=== PATIENT | female | born 1950 | race African-American/Black ===

== ENCOUNTER → 2017-12-25 | Outpatient (CLI) | payer OTHER | LOC: RAD 01:30 | DX: Z12.31 Encounter for screening mammogram for malignant neoplasm of breast (principal) ==

== ENCOUNTER → 2019-01-22 | Outpatient (CLI) | payer OTHER | LOC: ULTRA 10:01 | DX: N83.202 Unspecified ovarian cyst, left side (principal) ==

== ENCOUNTER → 2019-02-12 | Outpatient (CLI) | payer OTHER | LOC: RAD 11:09 | DX: Z12.31 Encounter for screening mammogram for malignant neoplasm of breast (principal) ==

== ENCOUNTER → 2019-02-13 | Outpatient (CLI) | payer OTHER | LOC: ULTRA 13:42 | DX: N63.20 Unspecified lump in the left breast, unspecified quadrant (principal) ==

== ENCOUNTER 2019-04-04 07:05 | Day surgery (SDC) | payer OTHER ==
[~2019-04-04] VITALS: Ht 167.6 cm; Wt 102.5 kg
[~2019-04-04 07:05] MED LIST: HAIR, SKIN & N1 EAC3 PO; HYDROCHLOROTHIA25 M2 PO; IBUPROFEN 800800 M1 PO
[2019-04-04 08:10] VITALS: BP 135/57
[2019-04-04 08:17] LABS: CALCIUM 9.4 mg/dL (8.5-10.1); POTASSIUM 3.3 mmol/L (3.5-5.1)
[2019-04-04 10:35] VITALS: BP 135/57
--- NOTE | 2019-04-04 14:10 | O ---
[facility] [place] [address] OPERATIVE REPORT Name: ROC TERRELL Room #: 150-3 [facility]..#: [id number] Admission: 04/04/19 Attend Phys: Ryan Ferrer MD Discharge: Date of : 54 Report #: [id number] THIS REPORT FOR: //name// CC: Ryan Clark DATE OF SERVICE: 04/04/2019 PREOPERATIVE DIAGNOSIS: Postmenopausal bleeding. POSTOPERATIVE DIAGNOSIS: Postmenopausal bleeding. PROCEDURE: Dilatation and curettage/hysteroscopy. SURGEON: Ryan Ferrer MD NOTCHING MACHINE OPERATOR: None. ANESTHESIA: General. ESTIMATED BLOOD LOSS: 5 mL. SPECIMENS: Endometrial curettings DRAINS: None. COMPLICATIONS: None. FINDINGS: Pelvic examination under anesthesia revealed an anteflexed, normal-sized uterus with left adnexal fullness. Hysteroscopically, there were some intrauterine adhesions in the midline, but otherwise no lesions. Endometrial curettings were scant. The internal cavity was that of an arcuate uterus, perhaps. DESCRIPTION OF PROCEDURE: The patient was seen in the preoperative holding area where consent was obtained for surgery and postoperative followup instructions were reviewed. The patient was then taken to the operating room and administered general anesthesia. She was then prepped and draped in a sterile fashion in the dorsal lithotomy position. Pelvic examination under anesthesia was carried out. Speculum was then placed in the vagina. The cervix was grasped using a single-tooth tenaculum along its anterior lip. There was a very stenotic cervix. Shima urethral dilators were used to progressively dilate the endocervical canal enough to admit the 3.5 mm hysteroscope with normal saline under direct hysteroscopic vision. The hysteroscope was inserted and findings were as dictated above. The cavity did seem small and therefore, the hysteroscope was removed and the uterine sound was used to measure the depth at [facility] [address] [place] [address] OPERATIVE REPORT Name: ROC TERRELL Room #: 150-3 [facility].#: [id number] Admission: 04/04/19 Attend Phys: Ryan Ferrer MD Discharge: Date of : 54 Report #: [id number] 5 cm, uterine and cervix combined. Both tubal ostia were visualized. No submucosal fibroids or endometrial polyps were seen. The hysteroscope was then again removed. Hanks dilators were used to progressively dilate the endocervical canal. A smooth sharp curette was then used to obtain endometrial curettings from the entirety of the endometrial cavity. These curettings were very scant and were sent for pathology. The hysteroscope was then reinserted under direct hysteroscopic vision with normal saline distending medium prior to withdrawing the hysteroscope. The tenaculum was removed from the cervix. Hemostasis was achieved using sponge on a stick pressure. All instrument and pack counts were correct after removing it. The patient was then taken out of general anesthesia and to the recovery room with the intravenous infusing well. She was to be discharged home on ibuprofen for pain and to be seen in the office in 7 days. She was to call Dr. Ferrer should she have any fever, increasing pain, or menses like bleeding. <ELECTRONICALLY SIGNED> By: Ryan Ferrer MD 04/04/19 1410 1041 [id number] Ryan Ferrer MD /nt
--- NOTE | 2019-04-11 18:06 | PATH ---
[facility] [address] [place] [address] PATHOLOGY RPT PROCEDURE Name: ROC ARAMBULA Breanne Room #: DEP [facility]..#: [id number] Admission: 04/04/19 Date of : 54 Discharge: 04/04/19 Report #: [id number] Path Case #: [id number] [facility] Accession Number: [id number] . 01 Material submitted: . endocervix - ENDOCERVICAL TISSUE . 01 Clinical history: . Cervical stenosis. . 02 Diagnosis: Cervix, endocervical tissue, curettings: - Fragments of ectocervical epithelium showing reactive changes including atypical squamous metaplasia. (Please see comment) - Fragments of benign endocervical epithelium with no evidence of dysplasia. (IUV:amna; 04/05/2019) QMS 04/05/2019 1348 Local . 02 Comment: The changes identified within the ectocervical epithelial fragments likely represent atrophy. Definitive koilocytic changes, or dysplastic changes are not identified. Please correlate clinically. (IUV:amna; 04/05/2019) . 02 Addendum: . This addendum is issued subsequent to a conversation with Dr. Ryan Ferrer who states that this specimen should actually represent endometrial curettings rather than endocervical. While the specimen is predominantly (90%) comprised of benign ectocervical as well endocervical epithelial elements, scant to rare inactive endometrial epithelium is present within the background (representing less than 2% of the sample) showing no evidence of hyperplasia, atypia or malignancy. The originally rendered diagnoses are further refined as follows: . Uterus, endocervical/endometrial tissue, curettings: - Scant to rare (less than 2% of specimen)fragments of inactive/atrophic endometrium without hyperplasia or malignancy. - Fragments of ectocervical epithelium showing reactive changes including atypical squamous metaplasia. - Fragments of benign endocervical epithelium with no evidence of dysplasia. (IUV/db; 04/11/2019) . Professional services performed by [facility] at [facility], [address] [place] [address] , [place] [address]. Technical services performed by [facility] at [address] [place] [address], [address], [place] [address]. [place] [address] PATHOLOGY RPT PROCEDURE Name: ROC ARAMBULA Breanne [id number] Admission: 04/04/19 Date of : 54 Discharge: 04/04/19 Report #: [id number] Path Case #: [id number] LBQ/04/11/2019 Addendum Electronically Signed by Maral Bishop MD, Pathologist . 02 Electronically signed: . Maral Bishop MD, Pathologist NPI- [id number] . 01 Gross description: . Received in formalin labeled "Arambula, Roc, endocervical tissue" is a 1.8 x 0.6 x 0.1 cm aggregate of red-brown soft tissue fragments. The specimen is submitted in cassette A1. ([facility]; 04/04/2019) SYC/SY 04/04/2019 1703 Local . 02 Pathologist provided ICD-10: N87.9, N85.8 . 02 CPT . 139185 Specimen Comment: A courtesy copy of this report has been sent to Specimen Comment: [phone], . Specimen Comment: Report sent to / DR DRIVER Performed at: [address] [facility], [place] [id number] MD Abimael Muniz MD Phone: [phone] Performed at: [address] [id number] MD Maral Bishop MD Phone: [phone]
== END 2019-04-04 11:15 | disposition home or self-care (01) ==
LOC: OR 07:05 → TBA 10:08 → OR 10:11
PROVIDERS: Obstetrics & Gynecology
DX: N95.0 Postmenopausal bleeding (principal); N87.9 Dysplasia of cervix uteri, unspecified; Z98.890 Other specified postprocedural states; Z88.8 Allergy status to other drugs, medicaments and biological substances; Z79.899 Other long term (current) drug therapy
CPT/HCPCS: 50010; 50101; 54172; 54173; 62110; 62900; 70005

== ENCOUNTER → 2019-08-06 | Outpatient (CLI) | payer OTHER | LOC: RAD 12:24 | DX: M43.16 Spondylolisthesis, lumbar region (principal); M48.061 Spinal stenosis, lumbar region without neurogenic claudication; M25.78 Osteophyte, vertebrae; M12.88 Other specific arthropathies, not elsewhere classified, other specified site ==

== ENCOUNTER → 2019-08-13 | Outpatient (CLI) | payer OTHER | LOC: MRI 07:59 | DX: M47.26 Other spondylosis with radiculopathy, lumbar region (principal); M43.16 Spondylolisthesis, lumbar region; M51.16 Intervertebral disc disorders with radiculopathy, lumbar region; M12.88 Other specific arthropathies, not elsewhere classified, other specified site; M48.061 Spinal stenosis, lumbar region without neurogenic claudication; M25.78 Osteophyte, vertebrae ==

== ENCOUNTER → 2019-09-18 | Outpatient (CLI) | payer OTHER ==
[~2019-09-18] VITALS: Ht 165.1 cm; Wt 88.0 kg
[~2019-09-18] MED LIST changes: +COLLAGEN PO
--- NOTE | ~2019-09-18 | HPC ---
[facility] [place] [address] PAIN MANAGEMENT CONSULTATION Name: ROC TERRELL Room #: REG STEFANIA FrederickMisaelJoeyMisael#: [id number] Admission: 09/18/19 Attend Phys: Eliezer Barrett DO Discharge: Date of : 54 Report #: [id number] THIS REPORT FOR: cc: Corona Clark,Eliezer Chang DO ~ CC: Eliezer Abdul DATE OF SERVICE: 09/18/2019 REFERRING PHYSICIAN: Dr. Clark. CHIEF COMPLAINT: Low back pain, right lower extremity pain with paresthesias. HISTORY OF PRESENT ILLNESS: As you know, the patient is a very pleasant 69-year-old female who reports a 25-year history of chronic low back pain with progressively worsening right lower extremity pain. She is now experiencing numbness and tingling radiating from the low back all the way down the right leg with changes in her gait. She sought evaluation through her primary care physician who trialled conservative treatment options. Unfortunately, these options did not provide long-term benefit. She was then referred for MRI of the lumbar spine, the findings of that MRI showed severe central canal stenosis at L4-L5 and severe neural foraminal stenosis bilaterally at the L5-S1 level. The patient was then subsequently referred to our clinic to discuss treatment options. The patient indicates today her pain is continuous and constant with brief exacerbations of symptoms. She describes the pain as aching, throbbing, numbness and tingling. She places the current pain score at 6/10, daily average at 6-7/10, worst pain has been is 8-10/10. She states that prolonged standing, prolonged sitting and certain activities exacerbate symptoms. She states pain is improved with rest, medications and chiropractic manipulation. She has been referred to our service to discuss treatment options for lumbar radicular symptoms secondary to severe central canal stenosis at the L4-L5 level and neural foraminal stenosis at the L5-S1 level. PAST MEDICAL HISTORY: None. PAST SURGICAL HISTORY: 1. Hysterectomy. 2. Correction of hammertoe, bilateral feet. SOCIAL HISTORY: The patient denies tobacco, alcohol, IV or illicit drug use. 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 [place] [address] PAIN MANAGEMENT CONSULTATION Name: TERRELLROC REYES Room #: REG CL Dimple#: [id number] Admission: 09/18/19 Attend Phys: Eliezer Barrett DO Discharge: Date of : 54 Report #: [id number] workmen's compensation nor is she trying to obtain disability benefits. She is not in litigation in regards to pain. She is unaccompanied at today's visit. REVIEW OF SYSTEMS: Positive for wearing corrective eyewear, weight gain, decrease in appetite, fever and night sweats, low back pain, right lower extremity pain with paresthesias. All other review of systems negative per 12-point review of systems other than those listed in history of present illness. Pain impact score of 28/70 indicating moderate interference of daily activities secondary to pain. ALLERGIES: TRAMADOL. CURRENT MEDICATIONS: Ibuprofen 800 mg b.i.d., hydrochlorothiazide 25 mg once a day, collagen supplement 600 mg 3 times a day. IMAGING: MRI of the lumbar spine obtained 08/13/2019 shows L1-L2 bilateral facet arthropathy and ligamentum flavum hypertrophy. No significant central canal stenosis or neural foraminal stenosis. L2-L3 shows broad-based posterior disk bulge, bilateral facet and ligamentum flavum hypertrophy resulting in moderate central canal stenosis AP diameter of the canal 8.4 mm, mild neural foraminal narrowing bilaterally. L3-L4, broad-based posterior disk bulge, bilateral facet arthropathy and ligamentum flavum hypertrophy resulting in moderate central canal stenosis with AP diameter of the canal measuring 8.5 mm, mild bilateral neural foraminal narrowing. L5-S1, grade 1 anterolisthesis, bilateral facet hypertrophy and severe ligamentum flavum hypertrophy resulting in severe central canal stenosis with diameter of the canal 5.4 mm with moderate bilateral neural foraminal narrowing. L5-S1 shows posterior disk osteophyte complex, bilateral facet hypertrophy. No significant central canal stenosis, but severe neural foraminal narrowing. PQRS: The patient has known arthritic changes of the lumbar spine. No rheumatoid arthritis. She is placing pain intensity today at 6/10. She is not a fall risk, has not had a fall in last 3 months. She is not on blood thinners nor she is treated for hypertension. She utilizes hydrochlorothiazide for water retention. She is not on chronic opioids. She is at a low risk for opioid addiction. Pain impact score of 28/70, moderate interference of daily activities secondary to pain. PHYSICAL EXAMINATION: VITAL SIGNS: Blood pressure 139/60, pulse 71, respiratory rate 14 and unlabored. The patient is 100% on room air. Height 5 feet 5 inches tall, weight 194 pounds, BMI calculated 32.3. GENERAL: A well-developed, well-nourished, well-hydrated 69-year-old female appearing stated age, pain is rated today 6/10. [address] [address] PAIN MANAGEMENT CONSULTATION Name: ROC TERRELL Room #: REG [facility]#: [id number] Admission: 09/18/19 Attend Phys: Eliezer Barrett DO Discharge: Date of : 54 Report #: [id number] HEENT: Normocephalic, atraumatic. Pupils are equal, round, reactive to light. Extraocular muscles are intact. Sclerae nonicteric without injection. NEUROLOGIC: Cranial nerves 2-12 grossly intact. Speech fluent. The patient deemed a good historian. LUNGS: Clear. No wheeze, rhonchi, no rales. CARDIOVASCULAR: Regular. No appreciable gallop, no rub. ABDOMEN: Soft, mildly obese, normoactive bowel sounds. EXTREMITIES: Show no clubbing, no cyanosis, and no edema. MUSCULOSKELETAL: Lower extremity strength is symmetrical 5/5, though there is giveaway strength noted with hip flexion, knee extension on the right due to pain generation. Seated straight leg raising positive right. Supine straight leg raising positive right. Guero's test is negative. Modified Gaenslen's positive for some axial low back pain. Ankle clonus negative. Babinski is negative. She does appear to be intact to light touch from L1 through S2 dermatomes. Gait is antalgic favoring right lower extremity over left. ASSESSMENT: 1. Symptomatic lumbar radiculopathy. 2. Severe central canal stenosis of the lumbar spine. 3. Severe neural foraminal stenosis of lumbar spine. 4. Displacement of lumbar intervertebral disk with radiculopathy. 5. Lumbosacral spondylosis with radiculopathy. 6. Facet arthropathy of the lumbar spine. 7. Chronic intractable pain. PLAN: 1. The patient has been referred to our service to discuss treatment options for suspected lumbar radiculopathy. We have reviewed with the patient her recent MRI where we spent over 15 minutes of time reviewing the findings of that MRI and then correlating to her current symptoms. We utilized digital imaging as well as modeling to allow visualization of the findings. We then discussed the treatment options available for lumbar radiculopathy. The following was discussed with the patient today. We discussed physical therapy, stretching exercises and core strengthening as a treatment option. We discussed medication management utilizing neuropathic pain medications in the form of either nortriptyline, amitriptyline, Cymbalta, Lyrica or gabapentin. We also discussed epidural injection under fluoroscopic guidance to address lumbar radicular symptoms and the inflammatory process. We also discussed spinal cord stimulator therapy and ultimately surgical decompression at the L4-L5 level and foraminotomy at the L5-S1 level to address the findings therein. After reviewing the risks and benefits of all the proposed treatment options, the patient chose to undergo a lumbar epidural injection under fluoroscopic guidance. 2. The patient was advised due to third republican payer restrictions, authorization will have to be obtained before the patient could undergo the epidural [address] [address] PAIN MANAGEMENT CONSULTATION Name: ROC TERRELL Room #: REG CLRonit Musa#: [id number] Admission: 09/18/19 Attend Phys: Eliezer Barrett DO Discharge: Date of : 54 Report #: [id number] injection. Authorization could take anywhere from 4-7 working days. We will tentatively place to schedule the patient on the schedule for next Monday to undergo a lumbar epidural injection. If we are able to obtain the authorization earlier, we will have the patient return to undergo the procedure more rapidly. We will begin this process of authorization immediately. 2. No medication changes made at today's visit. We did discuss the medications today, but she wishes to delay this treatment option in favor of an epidural injection. 3. We will see the patient back in followup visit once we have achieved authorization for the patient to undergo the first in a series of lumbar epidural injections. We are hopeful we can provide this very rapidly. 4. We wish to thank Dr. Clark for the referral of the patient to our clinic. We will keep you apprised of her response to treatment as we address lumbar radiculopathy secondary to severe central canal stenosis at the L4-L5 level and the bilateral neural foraminal stenosis at the L5-S1 level. Again, we wish to thank you for the opportunity to see this patient in consultation. By: 1625 [id number] Eliezer Barrett DO /nt
[2019-09-18 15:00] VITALS: BP 139/60
--- NOTE | 2019-09-18 15:10 | NUR ---
Pain Clinic Assessment: 1. History of Osteoarthritis: SPINE History of Rheumatoid Arthritis: Not Applicable 2. Height: 5 ft. 5 in. 165.1 cm. Weight: 194.0 lb. oz. 87.998 kg. Patient's BMI: 32.3 3. Vital Signs: BP: 139/60 Pulse: 71 Resp: 14 Temp: 02 Sat: 100 ECG Mon: 4. Pain Intensity: 6 5. Fall Risk: Dizziness: N Needs help standing or walking: N Fallen in the last 3 months: N Fall risk comments: 6. Patient on Blood Thinner: None 7. History of Hypertension: N 8. Opioid Therapy greater than 6 weeks: N Opiate Contract Signed: 9. Risk Assessment Tool Provided: 10. Functional Assessment Tool: 11. Recreational Drug Use: Never Drug Type: Tobacco Use: Never Smoker Tobacco Type: Amount or Packs/day: How Many Years: Alcohol Use: Yes Frequency: Weekly Quant: 3
== END | disposition home or self-care (01) ==
LOC: PAIN 07:04
DX: M51.16 Intervertebral disc disorders with radiculopathy, lumbar region (principal); M47.27 Other spondylosis with radiculopathy, lumbosacral region; M48.061 Spinal stenosis, lumbar region without neurogenic claudication; M47.26 Other spondylosis with radiculopathy, lumbar region; G89.29 Other chronic pain; I10 Essential (primary) hypertension; Z98.890 Other specified postprocedural states; Z79.899 Other long term (current) drug therapy; Z90.710 Acquired absence of both cervix and uterus

== ENCOUNTER → 2019-10-08 | Outpatient (CLI) | payer OTHER ==
[~2019-10-08] VITALS: Ht 165.1 cm; Wt 90.3 kg
[2019-10-08 13:24] VITALS: BP 106/60
--- NOTE | 2019-10-08 13:34 | NUR ---
Pain Clinic Assessment: 1. History of Osteoarthritis: SPINE History of Rheumatoid Arthritis: Not Applicable 2. Height: 5 ft. 5 in. 165.1 cm. Weight: 199.0 lb. oz. 90.266 kg. Patient's BMI: 33.1 3. Vital Signs: BP: 106/60 Pulse: 68 Resp: 14 Temp: 02 Sat: 98 ECG Mon: 4. Pain Intensity: 4 5. Fall Risk: Dizziness: N Needs help standing or walking: N Fallen in the last 3 months: N Fall risk comments: 6. Patient on Blood Thinner: None 7. History of Hypertension: N 8. Opioid Therapy greater than 6 weeks: N Opiate Contract Signed: 9. Risk Assessment Tool Provided: LOW-3 10. Functional Assessment Tool: 11. Recreational Drug Use: Never Drug Type: Tobacco Use: Never Smoker Tobacco Type: Amount or Packs/day: How Many Years: Alcohol Use: Yes Frequency: Quant:
--- NOTE | 2019-10-09 12:25 | HPC ---
[facility] [place] [address] PAIN MANAGEMENT CONSULTATION Name: ROC TERRELL Room #: REG [facility] Dimple#: [id number] Admission: 10/08/19 Attend Phys: Eliezer Barrett DO Discharge: Date of : 54 Report #: [id number] THIS REPORT FOR: cc: Corona Clakr,Eliezer Chang DO ~ DATE OF SERVICE: 10/08/2019 REFERRING PHYSICIAN: Dr. Clark. CHIEF COMPLAINT: Low back pain, right lower extremity pain with paresthesias. HISTORY OF PRESENT ILLNESS: As you know, the patient is a very pleasant 69-year-old female reporting a 25-year history of chronic low back pain, progressively worsening over the past couple of months. She has symptoms that began in low back, radiating down the right leg in classic dermatomal distribution. She was seen in consultation 09/18/2019 per the request of her primary care physician to discuss options for treatment for symptomatic lumbar radiculopathy. Imaging did show severe central canal stenosis and severe neural foraminal stenosis as the source of her symptoms. She was established today's appointment to undergo a lumbar epidural injection under fluoroscopic guidance to address lumbar radicular symptoms. We have completed the preauthorization process for the patient to undergo the procedure today. She has been advised the risks and benefits of the procedure and wishes to proceed. She reports no changes in her medical history since our last visit. She is placing her pain today at a level of 4/10. She describes the pain as chronic, aching, numbness, tingling, throbbing and stiffness, exacerbated with standing and sitting, improves with relaxation, medications and chiropractic manipulation. ALLERGIES: TRAMADOL. CURRENT MEDICATIONS: Hydrochlorothiazide 25 mg once a day, ibuprofen 800 mg 3 times a day, collagen supplement 600 mg 3 times a day. SOCIAL HISTORY: The patient denies tobacco, alcohol, IV or illicit drug use. She is a retired educator, retired about 4 years ago. She is not receiving workmen's compensation nor is trying to obtain disability benefits. She is unaccompanied at today's visit. IMAGING: No new imaging available. PHYSICAL EXAMINATION: VITAL SIGNS: Blood pressure 106/60, pulse 68, respiratory rate 14 and unlabored. The patient 98% on room air. Height 5 feet 5 inches tall, weight 199 pounds, BMI calculated 33.1. [place] [address] PAIN MANAGEMENT CONSULTATION Name: ROC TERRELL [facility] [id number] Admission: 10/08/19 Attend Phys: Eliezer Barrett DO Discharge: Date of : 54 Report #: [id number] GENERAL: Well-developed, well-nourished, well-hydrated 69-year-old female appearing stated age, pain is rated today at around 4/10. HEENT: Normocephalic, atraumatic. Pupils equal, round, reactive to light. EXTREMITIES: Show no clubbing, no cyanosis, and no edema. MUSCULOSKELETAL: Lower extremity strength remains symmetrical 5/5, intact to light touch from L1 through S2 dermatomes. Seated straight leg raising is positive on the right. Supine straight leg raising positive on the right. Ankle clonus negative. Babinski is negative. Gait appears mildly antalgic favoring right lower extremity over left. Muscle bulk and tone equal and symmetrical in lower extremities. ASSESSMENT: 1. Symptomatic lumbar radiculopathy. 2. Severe central canal stenosis of lumbar spine. 3. Severe neural foraminal stenosis of the lumbar spine. 4. Displacement of lumbar intervertebral disk with radiculopathy. 5. Lumbosacral spondylosis with radiculopathy. 6. Facet arthropathy of the lumbar spine. 7. Chronic intractable pain. PLAN: 1. The patient returns today in followup visit to undergo lumbar epidural injection under fluoroscopic guidance. We have received authorization for the patient to undergo the procedure. She has been advised of the risks and the benefits of this procedure. These risks include, but are not necessarily limited to bleeding, bruising, infection, worsening pain, no relief of pain, also risk of temporary or permanent muscle weakness, temporary or permanent nerve damage, possible paralysis and . The patient states she understood and wished to proceed. The patient has been advised of the risks, specifically inherent to the COVID-19 virus pandemic and its restrictions for epidural injections. I advised the patient that epidural injections themselves do not show a higher risk of milagros the virus, though the use of steroids in the injections can increase her risk for COVID infection as well as could exacerbate her symptoms if she develops a COVID infection. The patient states she understands the risks of the COVID virus and the epidural injection proposed today and wishes to proceed. 2. No medication changes made at today's visit. The patient will continue current medical therapy as previously prescribed. 3 We will see the patient back in followup visit in approximately 30 days. At that time, review the efficacy of today's lumbar epidural injection and to determine if next in the series of epidural injections might be recommended. PROCEDURE NOTE: DESCRIPTION OF PROCEDURE: L5-S1 right parasagittal epidural steroid injection under fluoroscopic guidance. [address] [address] PAIN MANAGEMENT CONSULTATION Name: ROC TERRELL Room #: REG [facility]#: [id number] Admission: 10/08/19 Attend Phys: Eliezer Barrett DO Discharge: Date of : 54 Report #: [id number] This is the first procedure of the first series that the patient is undergoing. After obtaining written consent, the patient was taken back to the fluoroscopy suite, placed in a prone position with pillow under the abdomen to decrease lumbar lordosis. The skin overlying the lumbosacral area was then prepped and draped in aseptic fashion. The L5-S1 vertebral interspace was then identified by AP fluoroscopy. The skin and subcutaneous tissue overlying the target site of injection was anesthetized with 3 mL 1% lidocaine. A 20-gauge 3-1/2-inch Tuohy needle was then advanced under fluoroscopic guidance towards the epidural space using right parasagittal approach. The epidural space was identified using loss of resistance to air technique. After negative aspiration for heme or cerebrospinal fluid, a total of 1 mL of Omnipaque was injected. A lumbar epidurogram was confirmed using both AP and lateral fluoroscopy. After negative aspiration for heme or cerebrospinal fluid, 5 mL of a solution containing 2 mL 40 mg per mL, 80 mg total triamcinolone along with 3 mL of lidocaine 1% was injected in increments. Contrast spread was noted posterior epidural space. The needle was then retracted approximately half way and needle tract flushed with 1 mL of 1% lidocaine. Needle was then removed. There were no apparent sensory or motor deficits in the lower extremity following the procedure. A sterile bandage was placed over the injection site. The heart rate, pulse, oximetry and blood pressure were continuously monitored after the procedure. There were no apparent complications. The patient tolerated the procedure well and was carefully escorted to the recovery room in stable condition. There were no apparent complications. After meeting discharge criteria, the patient was then discharged home. <ELECTRONICALLY SIGNED> By: Eliezer Barrett DO 10/09/19 [id number] Eliezer Barrett DO /nt
== END | disposition home or self-care (01) ==
LOC: PAIN 09:23
DX: M51.16 Intervertebral disc disorders with radiculopathy, lumbar region (principal); M47.27 Other spondylosis with radiculopathy, lumbosacral region; M47.26 Other spondylosis with radiculopathy, lumbar region; M48.061 Spinal stenosis, lumbar region without neurogenic claudication; G89.29 Other chronic pain; Z98.890 Other specified postprocedural states; Z79.899 Other long term (current) drug therapy; Z88.8 Allergy status to other drugs, medicaments and biological substances

== ENCOUNTER → 2020-06-23 | Outpatient (CLI) | payer OTHER | LOC: BC 09:25 | PROVIDERS: ATTEND Neuromusculoskeletal Medicine & OMM | DX: Z12.31 Encounter for screening mammogram for malignant neoplasm of breast (principal) ==

== ENCOUNTER → 2020-09-22 | Outpatient (CLI) | payer OTHER ==
[~2020-09-22] VITALS: Ht 165.1 cm; Wt 85.0 kg
[~2020-09-22] MED LIST changes: +BLACK COHOSH540 MG PO; +TURMERIC500 M2 PO; +VITAMIN C500 MG PO; +VITAMIN D350 MC3 PO; +ZANAFLEX4 M1 PO; +ZINC30 MG PO
[2020-09-22 13:53] VITALS: BP 122/66
--- NOTE | 2020-09-22 14:23 | NUR ---
Pain Clinic Assessment: 1. History of Osteoarthritis: SPINE History of Rheumatoid Arthritis: Not Applicable 2. Height: 5 ft. 5 in. 165.1 cm. Weight: 187.4 lb. oz. 85.004 kg. Patient's BMI: 31.2 3. Vital Signs: BP: 122/66 Pulse: 75 Resp: 16 Temp: 02 Sat: 100 ECG Mon: 4. Pain Intensity: 7 5. Fall Risk: Dizziness: N Needs help standing or walking: N Fallen in the last 3 months: N Fall risk comments: 6. Patient on Blood Thinner: None 7. History of Hypertension: N 8. Opioid Therapy greater than 6 weeks: N Opiate Contract Signed: 9. Risk Assessment Tool Provided: LOW-3 10. Functional Assessment Tool: 11. Recreational Drug Use: Never Drug Type: Tobacco Use: Never Smoker Tobacco Type: Amount or Packs/day: How Many Years: Alcohol Use: Yes Frequency: Quant:
--- NOTE | 2020-09-23 11:25 | HPC ---
[address] [address] PAIN MANAGEMENT CONSULTATION Name: ROC TERRELL Room #: REG [facility] Dimple#: [id number] Admission: 09/22/20 Attend Phys: Eliezer Barrett DO Discharge: Date of : 54 Report #: [id number] THIS REPORT FOR: cc: Corona Clark,Eliezer Chang DO ~ DATE OF SERVICE: 09/22/2020 CHIEF COMPLAINT: Low back pain, right lower extremity pain with paresthesias. HISTORY OF PRESENT ILLNESS: As you know, the patient is a very pleasant 70-year-old female who reports a 25-year history of chronic low back pain, progressively worsening right lower extremity pain with paresthesias. We saw the patient in consultation per the request of her primary care physician, Dr. Corona Clark on 09/24/2019 diagnosed with symptomatic lumbar radiculopathy secondary to severe central canal stenosis and neural foraminal stenosis of lumbar spine. We obtained authorization for the patient to undergo a lumbar epidural injection, which was performed 10/08/2019 with good efficacy. The patient reports with that injection she received 75% improvement in overall pain. Unfortunately, over the past 2-3 months, she has had a gradual return of symptoms, no inciting injury or trauma. She is placing her pain score today at 7/10. States her pain is chronic, aching, numbness, tingling, throbbing and stiffness when describing symptoms exacerbated with standing, sitting for too long, walking long distances or shifting weight to her right leg. Pain is improved with relaxation, medications, chiropractic manipulation recliner and the previous epidural injection. She returns today in followup visit to discuss the possibility of undergoing the next in the series of epidural injections to address recurrent lumbar radicular pain. ALLERGIES: TRAMADOL. CURRENT MEDICATIONS: Zanaflex 4 mg b.i.d. p.r.n., black cohosh 540 mg 3 times a day, zinc gluconate 30 mg once a day, turmeric 500 mg once a day, cholecalciferol 50 mcg per day, ascorbic acid 500 mg once a day, ibuprofen 800 mg b.i.d., hydrochlorothiazide 25 mg once a day. SOCIAL HISTORY: The patient denies tobacco, alcohol, IV or illicit drug use. 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 She is unaccompanied at today's visit. IMAGING: No new imaging available. PHYSICAL EXAMINATION: VITAL SIGNS: Blood pressure 122/66, pulse 75, respiratory rate 16 and unlabored. The patient is 100% on room air. Height 5 feet 5 inches tall, [facility] [address] [place] [address] PAIN MANAGEMENT CONSULTATION Name: ROC TERRELL Room #: REG CL Dimple#: [id number] Admission: 09/22/20 Attend Phys: Eliezer Barrett DO Discharge: Date of : 54 Report #: [id number] weight 187.4 pounds, BMI calculated 31.2. GENERAL: Well-developed, well-nourished, well-hydrated 70-year-old female, appearing stated age, placing current pain score at 7/10. HEENT: Normocephalic, atraumatic. Pupils equal, round, and responsive. Extraocular muscles are intact. The patient is wearing a mask in compliance with COVID-19 regulations. EXTREMITIES: Show no clubbing, no cyanosis, and no appreciable edema. MUSCULOSKELETAL: Lower extremity strength is symmetrical with rating of muscle strength 5/5 bilaterally. She is intact to light touch from L1 through S2 dermatomes bilaterally. Seated straight leg raising negative. Supine straight leg raising is positive on the right at about 60-degree angle. Ankle clonus negative. Babinski is negative. Gait mildly antalgic favoring right lower extremity over left. Muscle bulk and tone equal and symmetrical in lower extremity. Lumbar provocation is met with slight increase in pain mainly with rotation and lateral flexion to the right. ASSESSMENT: 1. Symptomatic lumbar radiculopathy. 2. Severe central canal stenosis of lumbar spine. 3. Severe neural foraminal stenosis of lumbar spine. 4. Displacement of lumbar intervertebral disk with radiculopathy. 5. Lumbosacral spondylosis with radiculopathy. 6. Facet arthropathy of the lumbar spine. 7. Chronic intractable pain. PLAN: 1. The patient returns today in followup visit reporting a slow and progressive recurrence of lumbar radicular symptoms. She is experiencing pain that begins in the low back, buttock area, radiates down the right leg in classic dermatomal distribution. The patient did very well with previous epidural injection almost 1 year ago on 10/08/2019 and had almost 9 months of pain improvement. Unfortunately, her symptoms have begun to return. No inciting injury or trauma. She returns today to begin the process of authorization for the next in the series of epidural injections. She denies injury or trauma that may have led to symptom reoccurrence. She has trialled [id number] medications, rest, relaxation and some home stretching exercises, but this has not improved symptoms. She has been referred back to our clinic to begin the process of authorization for epidural injection. 2. No medication changes made at today's visit. The patient will continue current medical therapy as prior prescribed. 3. We will begin the process of authorization for the patient to undergo lumbar epidural injection. Authorization takes somewhere between 4-7 working days. We will begin this process immediately once we have this authorization. We plan to have the patient return to undergo lumbar epidural injection under fluoroscopic guidance. We are hopeful we will have this authorization quickly and the patient can return to undergo the procedure. [address] [address] PAIN MANAGEMENT CONSULTATION Name: ROC TERRELL Breanne Room #: REG [facility].#: [id number] Admission: 09/22/20 Attend Phys: Eliezer Barrett DO Discharge: Date of : 54 Report #: [id number] 4. We wish to thank Dr. Clark for the re-referral of the patient back to our clinic to address her recurrent lumbar radiculopathy. We will keep you apprised of response. <ELECTRONICALLY SIGNED> By: Eliezer Barrett DO 09/23/20 [id number] Eliezer Barrett DO /nt
== END ==
LOC: PAIN 06:58
PROVIDERS: ATTEND Anesthesiology Pain Medicine
DX: M47.27 Other spondylosis with radiculopathy, lumbosacral region (principal); M51.16 Intervertebral disc disorders with radiculopathy, lumbar region; M48.061 Spinal stenosis, lumbar region without neurogenic claudication; M79.604 Pain in right leg; R20.2 Paresthesia of skin; G89.29 Other chronic pain

== ENCOUNTER → 2020-10-06 | Outpatient (CLI) | payer OTHER ==
[~2020-10-06] VITALS: Ht 165.1 cm; Wt 85.3 kg
[~2020-10-06] MED LIST changes: +LYRICA 75 MG CA75 MG PO
[2020-10-06 14:26] VITALS: BP 105/67
--- NOTE | 2020-10-06 14:34 | NUR ---
Pain Clinic Assessment: 1. History of Osteoarthritis: SPINE History of Rheumatoid Arthritis: Not Applicable 2. Height: 5 ft. 5 in. 165.1 cm. Weight: 188.0 lb. oz. 85.276 kg. Patient's BMI: 31.3 3. Vital Signs: BP: 105/67 Pulse: 83 Resp: 16 Temp: 02 Sat: 100 ECG Mon: 4. Pain Intensity: 6 5. Fall Risk: Dizziness: N Needs help standing or walking: Y Fallen in the last 3 months: N Fall risk comments: 6. Patient on Blood Thinner: None 7. History of Hypertension: N 8. Opioid Therapy greater than 6 weeks: N Opiate Contract Signed: 9. Risk Assessment Tool Provided: LOW-3 10. Functional Assessment Tool: 11. Recreational Drug Use: Never Drug Type: Tobacco Use: Never Smoker Tobacco Type: Amount or Packs/day: How Many Years: Alcohol Use: Yes Frequency: Monthly Quant: 2
--- NOTE | 2020-10-12 10:03 | HPC ---
[address] [address] PAIN MANAGEMENT CONSULTATION Name: ROC TERRELL Room #: REG [facility]#: [id number] Admission: 10/06/20 Attend Phys: Eliezer Barrett DO Discharge: Date of : 54 Report #: [id number] THIS REPORT FOR: cc: Corona Clark,Eliezer Chang DO ~ DATE OF SERVICE: 10/06/2020 REFERRING PHYSICIAN: Corona Clark MD CHIEF COMPLAINT: Low back pain, right lower extremity pain with paresthesias. HISTORY OF PRESENT ILLNESS: As you know, the patient is a very pleasant 70-year-old female with a 25-year history of chronic low back pain, progressively worsening right lower extremity pain with paresthesias. The patient was seen in consultation per the request of her primary care physician, Dr. Clark. On 09/24/2019 diagnosed with symptomatic lumbar radiculopathy and undergoing a lumbar epidural injection under fluoroscopic guidance. The patient reports today a recurrence of pain now rated at 6/10, describes the pain as constant, aching, numbness, tingling, throbbing and stiffness, exacerbated with standing, sitting for any length of time, walking or shifting weight to her right leg. Pain is improved with relaxation, medications, chiropractic manipulation, recliner and prior epidural injections. She returns today in followup visit requesting to undergo next in the series of epidural injections in hopes of improving pain. She denies new injury or trauma or any changes in medical management since our last visit. She states she has been doing very well until just recently where her symptoms began to return. ALLERGIES: TRAMADOL. CURRENT MEDICATIONS: Tizanidine 4 mg 4 times a day, black cohosh 540 mg per day, zinc gluconate 30 mg once a day, turmeric root 500 mg once a day, vitamin D3 50 mcg per day, ascorbic acid 500 mg once a day, collagen 600 mg 3 tabs per day, ibuprofen 800 mg 3 times a day, hydrochlorothiazide 25 mg per day. SOCIAL HISTORY: The patient denies tobacco, alcohol, IV or illicit drug use. She is a retired educator retired about 5 years ago, not receiving workmen's compensation. She is unaccompanied today. IMAGING: No new imaging available. PHYSICAL EXAMINATION: VITAL SIGNS: Blood pressure 105/67, pulse is 83, respiratory rate 16 and unlabored. The patient is 100% on room air. Height 5 feet 5 inches tall, weight 188 pounds, BMI calculated 31.3. GENERAL: Well-developed, well-nourished, well-hydrated 70-year-old female, [place] [address] PAIN MANAGEMENT CONSULTATION Name: ROC TERRELL Room #: REG [facility].#: [id number] Admission: 10/06/20 Attend Phys: Eliezer Barrett DO Discharge: Date of : 54 Report #: [id number] appearing stated age, pain is rated today at around 6/10. HEENT: Normocephalic, atraumatic. Pupils equal, round, and responsive. EXTREMITIES: Show no clubbing, no cyanosis. No appreciable edema. MUSCULOSKELETAL: Seated straight leg raising negative. Supine straight leg raising positive on the right. This is about 60-70 degree angle. Ankle clonus negative. Babinski is negative. Gait appears normal. ASSESSMENT: 1. Symptomatic lumbar radiculopathy. 2. Severe central canal stenosis of lumbar spine. 3. Severe neural foraminal stenosis of lumbar spine. 4. Displacement of lumbar intervertebral disk with radiculopathy. 5. Lumbosacral spondylosis with radiculopathy. 6. Facet arthropathy of the lumbar spine. 7. Chronic intractable pain. PLAN: 1. The patient has returned today in followup visit having received authorization to undergo lumbar epidural injection under fluoroscopic guidance. We last saw the patient on 09/22/2020 for the precertification process. We have received this precertification and the patient returns today to undergo the proposed epidural injection. The patient is placing pain score today at 6/10. She has been advised risks and benefits of the procedure and states understood and wished to proceed. 2. No medication changes made at today's visit. The patient will continue current medical therapy as prior prescribed. 3. We plan to see the patient back in followup visit to undergo lumbar epidural injection under fluoroscopic guidance on an as needed basis. We are hopeful the patient will see good and prolonged benefit as we have seen in the past with the epidural injection provided today. PROCEDURE NOTE DESCRIPTION OF PROCEDURE: L5-S1 right parasagittal epidural steroid injection under fluoroscopic guidance. This is the first procedure of the second series that the patient is undergoing. After obtaining written consent, the patient was taken back to the fluoroscopy suite, placed in a prone position with pillow under the abdomen to decrease lumbar lordosis. The skin overlying the lumbosacral area was then prepped and draped in aseptic fashion. The L5-S1 vertebral interspace was then identified by AP fluoroscopy. The skin and subcutaneous tissue overlying the target site of injection was anesthetized with 3 mL 1% lidocaine. A 20-gauge 3-1/2-inch Tuohy needle was then advanced under fluoroscopic guidance [address] [address] PAIN MANAGEMENT CONSULTATION Name: TERRELLRONY REYESA Breanne Room #: REG CL [facility]#: [id number] Admission: 10/06/20 Attend Phys: Eliezer Barrett DO Discharge: Date of : 54 Report #: [id number] towards the epidural space using a right parasagittal approach. The epidural space was identified using loss of resistance to air technique. After negative aspiration for heme or cerebrospinal fluid, a total of 1 mL of Omnipaque was injected. A lumbar epidurogram was confirmed using both AP and lateral fluoroscopy. After negative aspiration for heme or cerebrospinal fluid, 5 mL of a solution containing 2 mL 40 mg per mL, 80 mg total triamcinolone along with 3 mL of lidocaine 1% was injected in increments. Contrast spread was noted posterior epidural space. The needle was then retracted approximately half way and needle tract flushed with 1 mL of 1 mL lidocaine. Needle was then removed. There were no apparent sensory or motor deficits in the lower extremity following the procedure. A sterile bandage was placed over the injection site. The heart rate, pulse, oximetry and blood pressure were continuously monitored after the procedure. There were no apparent complications. The patient tolerated the procedure well and was carefully escorted to the recovery room in stable condition. There were no apparent complications. After meeting discharge criteria, the patient was then discharged home. <ELECTRONICALLY SIGNED> By: Eliezer Barrett DO 10/12/20 [id number] [id number] Eliezer Barrett DO /lisha
== END | disposition home or self-care (01) ==
LOC: PAIN 09-29 13:50
PROVIDERS: ATTEND Anesthesiology Pain Medicine
DX: M51.16 Intervertebral disc disorders with radiculopathy, lumbar region (principal); M47.27 Other spondylosis with radiculopathy, lumbosacral region; M47.26 Other spondylosis with radiculopathy, lumbar region; M48.061 Spinal stenosis, lumbar region without neurogenic claudication; G89.29 Other chronic pain; Z98.890 Other specified postprocedural states; Z79.899 Other long term (current) drug therapy; Z88.8 Allergy status to other drugs, medicaments and biological substances

== ENCOUNTER → 2020-10-20 | Outpatient (CLI) | payer OTHER ==
[~2020-10-20] VITALS: Ht 165.1 cm; Wt 82.6 kg
[2020-10-20 09:46] VITALS: BP 123/57
--- NOTE | 2020-10-20 10:15 | NUR ---
Pain Clinic Assessment: 1. History of Osteoarthritis: SPINE History of Rheumatoid Arthritis: Not Applicable 2. Height: 5 ft. 5 in. 165.1 cm. Weight: 182.0 lb. oz. 82.555 kg. Patient's BMI: 30.3 3. Vital Signs: BP: 123/57 Pulse: 75 Resp: 14 Temp: 02 Sat: 100 ECG Mon: 4. Pain Intensity: 6 5. Fall Risk: Dizziness: N Needs help standing or walking: N Fallen in the last 3 months: N Fall risk comments: 6. Patient on Blood Thinner: None 7. History of Hypertension: N 8. Opioid Therapy greater than 6 weeks: N Opiate Contract Signed: 9. Risk Assessment Tool Provided: LOW-3 10. Functional Assessment Tool: 11. Recreational Drug Use: Never Drug Type: Tobacco Use: Never Smoker Tobacco Type: Amount or Packs/day: How Many Years: Alcohol Use: Yes Frequency: Quant:
--- NOTE | 2020-10-21 07:35 | HPC ---
[facility] [address] PAIN MANAGEMENT CONSULTATION Name: ROC TERRELL [id number] Admission: 10/20/20 Attend Phys: Eliezer Barrett DO Discharge: Date of : 54 Report #: [id number] THIS REPORT FOR: cc: Corona Clark Steven F. DO Johnson, James E. DO ~ DOC #: [id number] cc: MD Eliezer Dawson DO DATE OF SERVICE: 10/20/2020 CHIEF COMPLAINT: Low back pain, right lower extremity pain with paresthesias. HISTORY OF PRESENT ILLNESS: As you know, the patient is a very pleasant 70-year-old female with a 25-year history of chronic low back pain, progressively worsening right lower extremity pain. As you are aware, the patient suffers from severe central canal stenosis at the L4-L5 level and moderate central canal stenosis at L2-L3 level. She has undergone epidural injections under fluoroscopic guidance, which have provided benefit, but unfortunately the symptoms that she has continues to reoccur. She returns today in followup visit reporting pain score 6/10. She had recent epidural injection 10/06/2020, which only gave about 1 week of improvement in symptoms. She returns today in followup visit to discuss her options for treatment given the lack of efficacy with this previous injection. The patient denies injury or trauma or any changes in medical history since her last visit. ALLERGIES: TRAMADOL. CURRENT MEDICATIONS: Tizanidine, black cohosh, zinc gluconate, turmeric root, vitamin D3, ascorbic acid, collagen, ibuprofen, hydrochlorothiazide. SOCIAL HISTORY: The patient denies tobacco, alcohol or IV or illicit drug use. She is a retired educator, retired about 5 years ago, not receiving workmen's compensation nor she is trying to obtain disability benefits. Unaccompanied today. IMAGING: No new imaging available. PHYSICAL EXAMINATION: VITAL SIGNS: Blood pressure 123/57, pulse is 75, respiratory rate 14 and unlabored. The patient is 100% on room air. Height 5 feet 5 inches tall, weight 182 pounds, BMI calculated 30.3. GENERAL: Well-developed, well-nourished, well-hydrated 70-year-old female appearing stated age, pain is rated around 6/10. HEENT: Normocephalic, atraumatic. Pupils are round and responsive. The patient is wearing a mask in compliance with COVID-[place] [address] PAIN MANAGEMENT CONSULTATION Name: ROC TERRELL Room #: REG [facility].#: [id number] Admission: 10/20/20 Attend Phys: Eliezer Barrett DO Discharge: Date of : 54 Report #: [id number] EXTREMITIES: Show no clubbing, no cyanosis, no edema. MUSCULOSKELETAL: Lower extremity strength is symmetrical, again today 5/5. Slight giveaway strength noted with hip flexion, knee extension on the right compared to left. Seated straight leg raising positive on the right. Supine straight leg raising positive on the right. Ankle clonus negative. Babinski is negative. Gait is antalgic favoring right lower extremity over left. ASSESSMENT: 1. Symptomatic lumbar radiculopathy. 2. Severe and progressively worsening spinal stenosis of lumbar spine. 3. Severe neural foraminal stenosis of lumbar spine. 4. Displacement of lumbar intervertebral disk with radiculopathy. 5. Lumbosacral spondylosis with radiculopathy. 6. Facet arthropathy of lumbar spine. 7. Chronic intractable pain. PLAN: 1. The patient returns today in followup visit having noted only transient improvement in symptoms with the epidural injection provided at the last visit. The patient and I did discuss that if the epidural injections began to lose effect, that other treatment options would have to be entertained. She has exhausted physical therapy and noted no real significant pain improvement. She trialled a neuropathic medication in the past in the form of gabapentin, but failed due to subtherapeutic effects. Now that epidurals are no longer effective, this leaves us with adjustments in medication management in hopes of improving pain and surgical options. The patient has chosen to begin with medication management, understanding that severe central canal stenosis and severe neural foraminal stenosis will ultimately have to be dealt with surgically, but she is hopeful to le off the surgical options as long as possible. 2. The patient will be started on Lyrica 75 mg dose, should begin 1 tab p.o. at bedtime and continue for 7 nights. No improvement in symptoms, no side effects including sleepiness, disorientation, confusion, mental slowing, then increase to 2 tabs p.o. at bedtime for a total of 150 mg per night. She will continue this for 7 nights. No improvement in symptoms, no side effects, then begin 1 tab in the morning, 2 tablets at night for 7 days. Again, if no improvement in symptoms, no side effects, then increase to 150 mg b.i.d. The patient was given #60 tablets to begin the titration. I have advised the patient once she reaches efficacy, contact our clinic so that we can provide a full prescription to her local pharmacy. If she notes no improvement or side effects, we will see her back in followup visit. 3. We have recommended to the patient that she contact her PCP in regards to referrals for neurosurgical consultation. The patient will do so at her earliest convenience. I do feel that it would be important for the patient to have a conversation with neurosurgery in regards to their options for treatment. [address] [address] PAIN MANAGEMENT CONSULTATION Name: ROC TERRELL Room #: REG [facility] Dimple#: [id number] Admission: 10/20/20 Attend Phys: Eliezer Barrett DO Discharge: Date of : 54 Report #: [id number] We did discuss the possibility of a spinal cord stimulator, but advised the patient that this would not change the pathology that is in her back, nor would it slow the process of further development of central canal and neural foraminal stenosis, ultimately rendering the device ineffective for control of pain. This could provide pain relief for a couple of months or possibly a couple of years, but will not provide long-term benefit. We recommend she follow up with her PCP in regards to surgical referrals. 4. I will see the patient back in followup visit in 1 month to address the Lyrica further if we are seeing good effect. If she is not, she will be returning earlier and we will keep you apprised of our discussion at that visit. Eliezer Barrett DO JEJ/MUK <ELECTRONICALLY SIGNED> By: Eliezer Barrett DO 10/21/20 0735 [id number] Eliezer Barrett DO /nt
== END ==
LOC: PAIN 08:11
PROVIDERS: ATTEND Anesthesiology Pain Medicine
DX: M51.16 Intervertebral disc disorders with radiculopathy, lumbar region (principal); M48.061 Spinal stenosis, lumbar region without neurogenic claudication; M47.27 Other spondylosis with radiculopathy, lumbosacral region; M79.604 Pain in right leg; R20.2 Paresthesia of skin; F11.20 Opioid dependence, uncomplicated; G89.29 Other chronic pain

== ENCOUNTER → 2020-11-10 | Outpatient (CLI) | payer OTHER ==
[~2020-11-10] VITALS: Ht 165.1 cm; Wt 83.4 kg
[~2020-11-10] MED LIST changes: +NEURONTIN 300M300 M2 PO
[2020-11-10 09:39] VITALS: BP 106/65
--- NOTE | 2020-11-10 09:56 | NUR ---
Pain Clinic Assessment: 1. History of Osteoarthritis: SPINE History of Rheumatoid Arthritis: Not Applicable 2. Height: 5 ft. 5 in. 165.1 cm. Weight: 183.8 lb. oz. 83.371 kg. Patient's BMI: 30.6 3. Vital Signs: BP: 106/65 Pulse: 82 Resp: 16 Temp: 02 Sat: 100 ECG Mon: 4. Pain Intensity: 4 TO 5 5. Fall Risk: Dizziness: N Needs help standing or walking: N Fallen in the last 3 months: N Fall risk comments: 6. Patient on Blood Thinner: None 7. History of Hypertension: N 8. Opioid Therapy greater than 6 weeks: N Opiate Contract Signed: 9. Risk Assessment Tool Provided: LOW-3 10. Functional Assessment Tool: 11. Recreational Drug Use: Never Drug Type: Tobacco Use: Never Smoker Tobacco Type: Amount or Packs/day: How Many Years: Alcohol Use: Yes Frequency: Monthly Quant: 2
--- NOTE | 2020-11-11 08:22 | HPC ---
[facility] [place] [address] PAIN MANAGEMENT CONSULTATION Name: ROC TERRELL Room #: REG Ronit Misael.#: [id number] Admission: 11/10/20 Attend Phys: Eliezer Barrett DO Discharge: Date of : 54 Report #: [id number] THIS REPORT FOR: cc: Corona Clark,Eliezer Chang DO ~ DOC #: [id number] cc: MD Eliezer Dawson DO DATE OF SERVICE: 11/10/2020 CHIEF COMPLAINT: Low back pain and right lower extremity pain with paresthesias. HISTORY OF PRESENT ILLNESS: As you know, the patient is a very pleasant 70-year-old female with a 25-year history of chronic low back pain progressively worsening right lower extremity symptoms. As you are aware, the patient suffers from severe central canal stenosis at L4-L5 level and moderate central canal stenosis at the L2-L3 level. The source of her current symptoms is the L4-L5 distribution. She was started on Lyrica at her last visit and noted about a 50% improvement in overall pain, but unfortunately she was experiencing visual side effects that she could not tolerate. She has discontinued the medication and states that some of the symptoms have begun to improve. She returns today in followup visit to discuss medication management versus interventional treatments to address lumbar radiculopathy. She denies injury or trauma. She is placing current pain score at 4-5/10 and states her pain is aching, numbness, tingling, throbbing, and stiffness in its presentation. ALLERGIES: TRAMADOL. CURRENT MEDICATIONS: Tizanidine, black cohosh, zinc gluconate, turmeric root, vitamin D3, ascorbic acid, collagen, ibuprofen, and hydrochlorothiazide. SOCIAL HISTORY: The patient denies tobacco, alcohol or IV or illicit drug use. She is a retired educator, retired about 5 years ago, not receiving workmen's compensation, unaccompanied today. IMAGING: No new imaging available. PHYSICAL EXAMINATION: VITAL SIGNS: Blood pressure 106/65, pulse 82, respiratory rate 16, unlabored. The patient is 100% on room air. Height 5 feet 5 inches tall, weight 183.8 pounds, BMI calculated 30.6. GENERAL: Well-developed, well-nourished, well-hydrated, 70-year-old female appearing stated age. Pain is rated anywhere from 4-5/10. HEENT: Normocephalic, atraumatic. Pupils are round. Extraocular muscles are [address] [address] PAIN MANAGEMENT CONSULTATION Name: ROC TERRELL Room #: REG [facility] Dimple#: [id number] Admission: 11/10/20 Attend Phys: Eliezer Barrett DO Discharge: Date of : 54 Report #: [id number] intact. She is wearing a mask in compliance with COVID-19 regulations. EXTREMITIES: Show no clubbing, no cyanosis, no edema. MUSCULOSKELETAL: Lower extremity strength is symmetrical 5/5. Muscle bulk and tone is equal and symmetrical in lower extremities. Seated straight leg raising positive on the right. Supine straight leg raising positive on the right. Fabere's test is negative. Gait is antalgic favoring right lower extremity over left. Deep tendon reflexes are symmetrical, but diminished. ASSESSMENT: 1. Symptomatic lumbar radiculopathy. 2. Severe central canal stenosis of the lumbar spine. 3. Severe neural foraminal stenosis of lumbar spine. 4. Displacement of lumbar intervertebral disk with radiculopathy. 5. Lumbosacral spondylosis with radiculopathy. 6. Facet arthropathy of lumbar spine. 7. Chronic intractable pain. PLAN: 1. The patient returns today in followup visit having received about 50% improvement in overall symptoms with the use of Lyrica, but unfortunately at the levels of 150 mg b.i.d., she began to experience visual issues including blurry vision. She has subsequently come off the medication and the blurry vision has begun to improve. She attributes this change of vision to the Lyrica. There are potential side effects of Lyrica that can cause visual changes. We recommend she remain off that medication. We discussed the other treatment options from a medical standpoint, which would include amitriptyline, nortriptyline, Cymbalta or possibly return to gabapentin and escalate the dose. We also discussed a lumbar epidural injection with the patient and surgical decompression, which I believe will ultimately be necessary. After reviewing the risks and benefits of all proposed treatment options, the patient chose to make further adjustments in medication management. 2. The patient will be provided a prescription of gabapentin 300 mg dose, should begin 1 tab p.o. at bedtime for 3 nights, then increase to 2 tabs p.o. at bedtime for 3 nights. No improvement in symptoms, no side effects, then 3 tabs p.o. at bedtime at night. If in 3 days, she is not noticing improvement in symptoms, then begin escalating doses in the morning hours every three days to reach 900 mg b.i.d. That will be our first goal dose. The patient was advised anytime during the titration of this medication. She notes improvement in symptoms, stabilize at that dose, no further escalation. If she notices any side effects to the medication throughout the titration process, reduce to the dose prior and contact our clinic. 3. We did discuss with the patient the possibility of undergoing a lumbar epidural injection. I do believe this would be beneficial for the patient. The patient is considering this as an option. She will discuss this with us further at followup visit. 4. The patient and I did discuss the possibility of seeing neurosurgery in [facility] [address] [place] [address] PAIN MANAGEMENT CONSULTATION Name: ROC TERRELL Room #: REG [facility]#: [id number] Admission: 11/10/20 Attend Phys: Eliezer Barrett DO Discharge: Date of : 54 Report #: [id number] regards to surgical decompression of the area. Given the severity of the stenosis at the L4-L5 level, there is a high likelihood the patient, given her young age, we will need to look for decompressive treatment. She wishes to delay this as much as possible, though understands that the progression of this disease process is consistent. 5. We will see the patient back in followup visit in 1 month for discussion of efficacy of the gabapentin. I did provide her 2 refills of gabapentin if it is effective for pain control. She can continue that medication and cancel our appointment. Otherwise, we will see her back in 1 month for possible epidural injection and adjustments in medication management. DO ESPINOZA Garcia/BEBE <ELECTRONICALLY SIGNED> By: Eliezer Barrett DO 11/11/20 0822 1020 99 Eliezer Barrett DO /nt
== END ==
LOC: PAIN 07:14
PROVIDERS: ATTEND Anesthesiology Pain Medicine
DX: M47.26 Other spondylosis with radiculopathy, lumbar region (principal); M47.27 Other spondylosis with radiculopathy, lumbosacral region; M48.061 Spinal stenosis, lumbar region without neurogenic claudication; G89.4 Chronic pain syndrome; Z79.891 Long term (current) use of opiate analgesic; Z79.899 Other long term (current) drug therapy

== ENCOUNTER → 2020-11-24 | Outpatient (CLI) | payer OTHER ==
[~2020-11-24] VITALS: Ht 165.1 cm; Wt 84.2 kg
[~2020-11-24] MED LIST changes: +GABAPENTIN100 MG PO; +OMEPRAZOLE40 MG PO
[2020-11-24 14:17] VITALS: BP 117/70
--- NOTE | 2020-11-24 14:35 | NUR ---
Pain Clinic Assessment: 1. History of Osteoarthritis: SPINE History of Rheumatoid Arthritis: Not Applicable 2. Height: 5 ft. 5 in. 165.1 cm. Weight: 185.6 lb. oz. 84.188 kg. Patient's BMI: 30.9 3. Vital Signs: BP: 117/70 Pulse: 87 Resp: 16 Temp: 02 Sat: 100 ECG Mon: 4. Pain Intensity: 7-8 5. Fall Risk: Dizziness: N Needs help standing or walking: N Fallen in the last 3 months: N Fall risk comments: 6. Patient on Blood Thinner: None 7. History of Hypertension: N 8. Opioid Therapy greater than 6 weeks: N Opiate Contract Signed: 9. Risk Assessment Tool Provided: LOW-3 10. Functional Assessment Tool: 11. Recreational Drug Use: Never Drug Type: Tobacco Use: Never Smoker Tobacco Type: Amount or Packs/day: How Many Years: Alcohol Use: Yes Frequency: Quant:
--- NOTE | 2020-12-01 09:33 | HPC ---
[facility] [place] [address] PAIN MANAGEMENT CONSULTATION Name: ROC TERRELL Room #: REG [facility].#: [id number] Admission: 11/24/20 Attend Phys: Eliezer Barrett DO Discharge: Date of : 54 Report #: [id number] THIS REPORT FOR: cc: Corona Clark,Eliezer Chang DO ~ DOC #: [id number] Eliezer Barrett DO DATE OF SERVICE: 11/24/2020 CHIEF COMPLAINT: Low back pain, right lower extremity pain with paresthesias. HISTORY OF PRESENT ILLNESS: Of note, the patient is a very pleasant 70-year-old female with a 25-year history of low back pain, progressively worsening right lower extremity symptoms. She was seen in consultation per the request of Dr. Clark on 09/18/2019, where she underwent an epidural injection under fluoroscopic guidance. She returned 1 year later, 09/22/2020 with recurrence of low back and right lower extremity pain. She underwent a lumbar epidural injection after we obtained authorization. Unfortunately, this provided minimal benefit. We began the medication management at that point. She is now taking gabapentin. She was doing very well at 600 mg p.o. at bedtime escalated doses of Lyrica to 900 mg p.o. at bedtime and reported double vision. She states she contacted our clinic and was advised to discontinue the medication entirely. She started the medication, side effects improved rapidly. Symptoms are very similar to her experience with oJyce except that she was receiving analgesic benefit with the gabapentin. She returns to discuss options for treatment. She is placing pain score around 7-8/10. She is also requesting a referral to physical therapy to trial a TENS unit to determine if this could help her symptoms. ALLERGIES: TRAMADOL. CURRENT MEDICATIONS: Tizanidine, black cohosh, zinc gluconate, turmeric root, vitamin D3, ascorbic acid, collagen, ibuprofen, hydrochlorothiazide, gabapentin. SOCIAL HISTORY: The patient denies tobacco, alcohol or IV illicit drug use. She is a retired educator, retired about five and a half years ago, not receiving workmen's compensation nor is trying to obtain disability benefits. Unaccompanied at today's visit. PQRS: The patient has known arthritic changes of the lumbar spine, bilateral hips and minimally in the knees. No rheumatoid arthritis. Placing her current pain score 7-8/10. She is not a fall risk, has not had a fall in last 3 months. She is not on blood thinners nor is she treated for hypertension. She is not on any chronic opioid medications, has a low opioid addiction potential based on assessment tool. Pain impact is 28/70. [address] [address] PAIN MANAGEMENT CONSULTATION Name: ROC TERRELL Room #: REG STEFANIA Musa#: [id number] Admission: 11/24/20 Attend Phys: Eliezer Barrett DO Discharge: Date of : 54 Report #: [id number] PHYSICAL EXAMINATION: VITAL SIGNS: Blood pressure 117/70, pulse is 87, respiratory rate 16 and unlabored. The patient 100% on room air. Height 5 feet 5 inches tall, weight 185.6 pounds, BMI calculated 30.9. GENERAL: A well-developed, well-nourished, well-hydrated 70-year-old female appearing stated age, pain is rated around 7-8/10. HEENT: Normocephalic, atraumatic. Pupils are round and responsive. She is wearing mask in compliance with COVID-19 regulations. EXTREMITIES: Show no clubbing, no cyanosis. No appreciable edema. MUSCULOSKELETAL: Lower extremity strength is again symmetrical, 5/5. Seated straight leg raising negative. Supine straight leg raising is positive on the right. Fabere's test is negative. Modified Gaenslen's positive for axial back pain. Ankle clonus negative. Babinski is negative. ASSESSMENT: 1. Symptomatic lumbar radiculopathy. 2. Severe and progressively worsening central canal stenosis of the lumbar spine. 3. Severe neural foraminal stenosis of lumbar spine. 4. Displacement of lumbar intervertebral disk with radiculopathy. 5. Lumbosacral spondylosis with radiculopathy. 6. Facet arthropathy of the lumbar spine. 7. Chronic intractable pain. PLAN: 1. The patient returns today in followup visit where she was discussed treatment options. She states she had side effects with gabapentin 900 mg dose where she was seeing double. This is not dissimilar to the side effect she had with the Lyrica, though the patient reported efficacy with the medication at 600 mg and no side effects. There is a strong possibility that the patient will note good analgesic benefit somewhere between 600 mg and 900 mg and we recommend a slow and methodical titration of the medication to reach the best efficacious level with the lowest potential side effects. The patient is agreeable. 2. The patient will restart the 600 mg, gabapentin p.o. at bedtime for tonight and continue for 3 nights. No side effects from the medications such as sleepiness, disorientation, confusion, mental slowing or double vision. Then, increase the dose with a new prescription of 100 mg tablets to 700 mg p.o. at bedtime. She will continue this for 3 nights. If no improvement in symptoms and no side effects as above, then increased to 800 mg p.o. at bedtime. If no improvement in symptoms, no side effects such as above and continuing to experience her ongoing pain, then increase to 900 mg p.o. at bedtime. I have given the patient a prescription of gabapentin 100 mg tablets to do additional titration from the 600 mg up to 900 mg. She will contact our clinic once she reaches the efficacious level. We will try to turn that into as few tablets as possible. I am pleased she sees response with the gabapentin. If we can obtain efficacy and analgesic benefit with minimizing the double vision that she was [facility] [address] [place] [address] PAIN MANAGEMENT CONSULTATION Name: ROC TERRELL Room #: REG [facility].#: [id number] Admission: 11/24/20 Attend Phys: Eliezer Barrett DO Discharge: Date of : 54 Report #: [id number] experiencing with 900 mg p.o. at bedtime, we are hopeful that she will be able to remain on the medication as she is seeing benefit and will not necessarily need to continue to undergo injections. 3. The patient was given a prescription to follow up physical therapy in regards to a trial of a TENS unit. I have written for that prescription today. She will follow up with physical therapy as quickly as possible. If she does find efficacy with the TENS unit, she can establish a request for insurance coverage of the TENS unit after the trial. We are hopeful the patient will see benefit with the TENS unit. 4. We will see the patient back in followup visit on an as needed basis. We are hopeful that adjustments in medication management and the TENS unit will provide the analgesic benefit proposed. We will see her back on an as needed basis. Eliezer Barrett DO JEJ/PUN <ELECTRONICALLY SIGNED> By: Eliezer Barrett DO 12/01/20 0933 [id number] Eliezer Barrett DO /nt
== END ==
LOC: PAIN 08:51
PROVIDERS: ATTEND Anesthesiology Pain Medicine
DX: G89.4 Chronic pain syndrome (principal); M47.27 Other spondylosis with radiculopathy, lumbosacral region; M48.061 Spinal stenosis, lumbar region without neurogenic claudication; M51.16 Intervertebral disc disorders with radiculopathy, lumbar region; Z79.891 Long term (current) use of opiate analgesic; Z79.899 Other long term (current) drug therapy

== ENCOUNTER → 2020-12-30 | Outpatient (CLI) | payer OTHER ==
[~2020-12-30] VITALS: Ht 165.1 cm; Wt 84.9 kg
[2020-12-30 08:42] VITALS: BP 116/66
--- NOTE | 2020-12-30 08:51 | NUR ---
Pain Clinic Assessment: 1. History of Osteoarthritis: SPINE History of Rheumatoid Arthritis: Not Applicable 2. Height: 5 ft. 5 in. 165.1 cm. Weight: 187.2 lb. oz. 84.913 kg. Patient's BMI: 31.2 3. Vital Signs: BP: 116/66 Pulse: 70 Resp: 16 Temp: 02 Sat: 98 ECG Mon: 4. Pain Intensity: 5 5. Fall Risk: Dizziness: N Needs help standing or walking: N Fallen in the last 3 months: N Fall risk comments: 6. Patient on Blood Thinner: None 7. History of Hypertension: N 8. Opioid Therapy greater than 6 weeks: N Opiate Contract Signed: 9. Risk Assessment Tool Provided: LOW-3 10. Functional Assessment Tool: 11. Recreational Drug Use: Never Drug Type: Tobacco Use: Never Smoker Tobacco Type: Amount or Packs/day: How Many Years: Alcohol Use: Yes Frequency: Monthly Quant: 2
--- NOTE | 2021-01-01 12:10 | HPC ---
[facility] [place] [address] PAIN MANAGEMENT CONSULTATION Name: ROC TERRELL Room #: REG [facility].#: [id number] Admission: 12/30/20 Attend Phys: Eliezer Barrett DO Discharge: Date of : 54 Report #: [id number] THIS REPORT FOR: cc: Corona Clark,Eliezer Chang DO ~ cc: Corona Clark MD DATE OF SERVICE: 12/30/2020 CHIEF COMPLAINT: Low back pain and right lower extremity pain with paresthesias. HISTORY OF PRESENT ILLNESS: As you know, the patient is a very pleasant 70-year-old female with longstanding history of chronic low back pain, progressively worsening right lower extremity symptoms. We saw the patient in consultation on 09/18/2019, underwent lumbar epidural injections periodically to address ongoing pain along with medication management. Unfortunately, her symptoms have reoccurred. She returns today requesting a lumbar epidural injection under fluoroscopic guidance in hopes of improving symptoms. She places pain today at 5/10. The patient states pain begins in low back, radiates down the right leg consistent with severe central canal stenosis at the L4-L5 level. She returns requesting a lumbar epidural injection under fluoroscopic guidance. ALLERGIES: TRAMADOL. CURRENT MEDICATIONS: Gabapentin, omeprazole, black cohosh, zinc gluconate, turmeric, cholecalciferol, ascorbic acid, collagen, ibuprofen, and hydrochlorothiazide. SOCIAL HISTORY: The patient denies tobacco, alcohol, or IV or illicit drug use. She is a retired educator, retired about five and a half years ago, not receiving workmen's compensation, unaccompanied today. IMAGING: No new imaging available. PHYSICAL EXAMINATION: VITAL SIGNS: Blood pressure 116/66, pulse 70, respiratory rate 16 and unlabored. The patient 98% on room air. Height 5 feet 5 inches tall, weight 187.2 pounds, BMI calculated 31.2. GENERAL: Well-developed, well-nourished, well-hydrated 70-year-old female appearing stated age, pain is rated today 5/10. HEENT: Head is normocephalic, atraumatic. Pupils equal, round, and responsive, but she is wearing a mask in compliance with COVID-19 regulations. EXTREMITIES: Show no clubbing, no cyanosis. No appreciable edema. MUSCULOSKELETAL: Lower extremity strength remains symmetrical 5/5. Muscle bulk [facility] [address] [place] [address] PAIN MANAGEMENT CONSULTATION Name: ROC TERRELL Room #: REG [facility]#: [id number] Admission: 12/30/20 Attend Phys: Eliezer Barrett DO Discharge: Date of : 54 Report #: [id number] and tone equal and symmetrical. Seated straight leg raising negative. Supine straight leg raising is positive on the right at approximately 70-degree angle. Ankle clonus negative. Babinski is negative. ASSESSMENT: 1. Symptomatic lumbar radiculopathy. 2. Severe central canal stenosis of lumbar spine. 3. Severe neural foraminal stenosis of lumbar spine. 4. Displacement of lumbar intervertebral disk with radiculopathy. 5. Lumbosacral spondylosis with radiculopathy. 6. Facet arthropathy of lumbar spine. 7. Chronic intractable pain. PLAN: 1. The patient returns today in followup visit requesting to undergo a lumbar epidural injection under fluoroscopic guidance. She reports about a 50% improvement in overall symptoms with a combination of medications and epidural injections. Unfortunately, her symptoms now have returned to a level of 5/10. She returns today requesting a lumbar epidural injection under fluoroscopic guidance. We have obtained authorization for the patient to undergo the procedure. Authorization code is [id number] and that was obtained on 10/02/2020. She has been advised risks and benefits of the procedure, states understood and wished to proceed. 2. No medication changes made at today's visit. The patient will continue current medical therapy as prior prescribed. 3. We plan to see the patient back in followup visit on an as needed basis for the next in the series of lumbar epidural injections. PROCEDURE NOTE DESCRIPTION OF PROCEDURE: L5-S1 right paramedian epidural steroid injection under fluoroscopic guidance. After obtaining written consent, the patient was taken back to fluoroscopy suite, placed in prone position with pillow under abdomen to decrease lumbar lordosis. Skin overlying lumbosacral area then prepped and draped in aseptic fashion. The L5-S1 vertebral interspace identified by AP fluoroscopy. Skin and subcutaneous tissue overlying target site injection anesthetized with 3 mL of 1% lidocaine. A 20 gauge 3-1/2 inch Tuohy needle advanced under fluoroscopic guidance towards the epidural space using a right paramedian approach. Epidural space identified using loss of resistance to air technique. After negative aspiration for heme or cerebrospinal fluid, 1 mL of Omnipaque injected. Lumbar epidurogram confirmed using both AP and lateral fluoroscopy. After negative aspiration for heme or cerebrospinal fluid, 5 mL solution containing 2 mL 40 mg per mL [address] [address] PAIN MANAGEMENT CONSULTATION Name: ROC TERRELL Room #: REG [facility]#: [id number] Admission: 12/30/20 Attend Phys: Eliezer Barrett DO Discharge: Date of : 54 Report #: [id number] total triamcinolone along with 3 mL of lidocaine, 1% injected slowly. Needle retracted senior care flushed with 1 mL of 1% lidocaine, then removed. Sterile bandage placed over injection site. No new motor deficits present in lower extremity following procedure. The patient tolerated the procedure well, carefully escorted to recovery room in stable condition. No apparent complications. After meeting discharge criteria, the patient discharged home. <ELECTRONICALLY SIGNED> By: Eliezer Barrett DO 01/01/21 1210 0933 01 Eliezer Barrett DO /nt
== END | disposition home or self-care (01) ==
LOC: PAIN 07:17
PROVIDERS: ATTEND Anesthesiology Pain Medicine
DX: M51.16 Intervertebral disc disorders with radiculopathy, lumbar region (principal); M47.27 Other spondylosis with radiculopathy, lumbosacral region; M47.26 Other spondylosis with radiculopathy, lumbar region; M48.061 Spinal stenosis, lumbar region without neurogenic claudication; G89.29 Other chronic pain; Z98.890 Other specified postprocedural states; Z79.899 Other long term (current) drug therapy; Z88.8 Allergy status to other drugs, medicaments and biological substances

== ENCOUNTER → 2021-07-19 | Outpatient (CLI) | payer OTHER | LOC: BC 10:20 | PROVIDERS: ATTEND Neuromusculoskeletal Medicine & OMM | DX: Z12.31 Encounter for screening mammogram for malignant neoplasm of breast (principal) ==